=== PATIENT | male | born 1970 | race Caucasian/White ===

== ENCOUNTER 2019-03-22 13:52 | Emergency (ER) | payer MEDICARE, SELFPAY ==
[2019-03-22 14:03] VITALS: BP 145/88; PULSE 107; RESP 16; TEMP 36.5; O2SAT 98
[2019-03-22] MEDS: Dexamethasone 4 MG TAB 10 MG PO (14:45)
--- NOTE | 2019-03-22 14:50 | ED.GENADUL_ITS ---
Discharge Plan Disposition Patient Disposition: HOME Condition: Stable Discharge Details Chief Complaint: FacialProb Clinical Impression: Congestion of paranasal sinus Primary Care Provider: None,None ED Provider: Rg Barba Home Meds and New Rx's Prescriptions: New dexamethasone [dexamethasone] 4 MG tablet 8 mg PO DAILY Qty: 4 RF: 0 No Action atorvastatin 80 mg Tablet 80 mg PO HS RF: 0 metformin 1,000 mg Tablet 1,000 mg PO BID RF: 0 esomeprazole magnesium [Nexium] 20 mg Capsule,Delayed Release(Dr/Ec) PO DAILY RF: 0 fluticasone propionate [Flonase Allergy Relief] 50 mcg/actuation [place],Suspension INTRANASAL RF: 0 Discharge Instructions Additional Instructions: 1. Drink plenty of fluids. 2. Continue all medications as prescribed. 3. Acetaminophen 1000mg every 4 hours (up to 5 time a day) and/or ibuprofen 600mg every 6 hours as needed for fever or pain. 4. Decadron 8 mg once a day for 2 more days starting tomorrow. 5. Use [id number] Flonase as directed. Return to the Emergency Department (ED) if your condition worsens, does not improve as expected, or for ANY other concerns. Specifically, return if you have new or uncontrolled pain, worsening fever, difficulty breathing, vomiting, or are unable to drink fluids. Medical Decision Making 48-year-old gentleman presents with new onset of left paranasal swelling and pain associated with sneezing recently. He has subjective congestion in his left sinuses. Nonfocal exam with normal ocular, nasal, and ear exam. No hypopharyngeal swelling or erythema. Discussed expectant management with anti- inflammatories. Treated in ED with oral Decadron discharge with prescription for the same. Also recommended using [id number] Flonase. He will follow- up here with a primary care provider. Given usual and customary return instructions prior to discharge. HPI 48-year-old gentleman with unremarkable past medical history who recently moved to [place] from [place]. Presents with new onset of left paranasal pain and congestion associated sneezing recently. He notes being mildly congested and then after a sneezing episode having increased pain and subjective swelling in his left paranasal region. His pain has been persistent and refractory to OTC analgesia. He denies significant change in vision, hearing loss, fever/chills, generalized soft tissue swelling of the face. He denies oropharyngeal swelling or difficulty swallowing. General Date/Time Provider Initiated Documentation: 03/22/19 14:38 . Related Data Home Medications Medication Instructions Recorded Confirmed atorvastatin 80 mg PO HS 03/22/19 03/22/19 dexamethasone 8 mg PO DAILY #4 tab 03/22/19 esomeprazole magnesium [Nexium] mg PO DAILY 03/22/19 fluticasone propionate [Flonase INTRANASAL 03/22/19 Allergy Relief] metformin 1,000 mg PO BID 03/22/19 03/22/19 Previous Rx's Medication Instructions Recorded dexamethasone 8 mg PO DAILY #4 tab 03/22/19 Allergies Allergy/AdvReac Type Severity Reaction Status Date / Time mushroom Allergy Unverified 03/22/19 14:07 General Stated Complaint: FacialProb TORSTEN: 4 Review of Systems All systems reviewed & are unremarkable except as noted in HPI and below PFSH Social History Smoking/Tobacco Use Status: Never Alcohol Intake: current Alcohol Intake frequency: a few times a month Substance use type: does not use Do you feel safe at home: Yes Do you feel safe in your relationship?: Yes Exam Narrative Exam Narrative: Nursing note and vital signs have been reviewed and noted. GENERAL: alert, active, no acute distress, well -hydrated, well-nourished HEENT: atraumatic/normocephalic, PERRLA, EOMI, conjunctiva clear, external ears/canals normal, nasal mucosa normal NECK: supple, full range of motion CARDIOVASCULAR: nl pulses, no edema PULMONARY: nl effort, no audible wheezing or stridor ABDOMEN: non-distended EXTREMITY: normal muscle tone, all joints with FROM, no deformity NUERO: normal mentation, moving all extremities, normal stance and gait, PSYCH: alert and oriented SKIN: no new rashes or lesions Course Vital Signs Vital signs: Vital Signs Temperature 97.7 F 03/22/19 14:03 Pulse 107 H 03/22/19 14:03 Respiratory Rate 16 03/22/19 14:03 Blood Pressure 145/88 H 03/22/19 14:03 Pulse Oximetry 98 03/22/19 14:03 Temperature 97.7 F 03/22/19 14:03 Temperature Source Temporal Artery Scan 03/22/19 14:03 Pulse 107 H 03/22/19 14:03 Respiratory Rate 16 03/22/19 14:03 Blood Pressure 145/88 H 03/22/19 14:03 Blood Pressure Position Sitting 03/22/19 14:03 Pulse Oximetry 98 03/22/19 14:03 Oxygen Delivery Method Room Air 03/22/19 14:03 Oxygen Flow Rate 0 03/22/19 14:03 Pain Level 7 03/22/19 14:03
== END 2019-03-22 14:54 | disposition home or self-care (01) ==
LOC: ER 14:43
PROVIDERS: Emergency Provider Emergency Medicine
DX: R09.81 Nasal congestion (principal)
CPT/HCPCS: 99283; J8540

== ENCOUNTER 2019-05-03 12:48 | Emergency (ER) | payer MEDICARE, SELFPAY ==
[2019-05-03 12:52] VITALS: BP 130/85; PULSE 78; RESP 20; TEMP 36.3; O2SAT 98
--- NOTE | 2019-05-03 13:09 | W.ED.GENAD ---
Discharge Plan Disposition Patient Disposition: HOME Condition: Good Discharge Details Chief Complaint: Orthopedic Clinical Impression: Plantar fasciitis, Chronic foot pain Primary Care Provider: Renea Amezquita ED Provider: Gisel Catherine Home Meds and New Rx's Prescriptions: Continued atorvastatin 80 mg Tablet 80 mg PO HS RF: 0 metformin 1,000 mg Tablet 1,000 mg PO BID RF: 0 esomeprazole magnesium [Nexium] 20 mg Capsule,Delayed Release(Dr/Ec) 20 mg PO DAILY RF: 0 fluticasone propionate [Flonase Allergy Relief] 50 mcg/actuation [place],Suspension 2 spray INTRANASAL PRN PRNRF: 0 Discharge Instructions Instructions: Plantar Fasciitis Exercises (GEN), Plantar Fasciitis (ED) Additional Instructions: Encourage water intake. Encourage rest, ice, elevation. Tylenol and/or ibuprofen as needed for discomfort. Please perform rolling exercises as discussed. An ice water bottle may also be of benefit to roll your foot on. Please keep your upcoming appointment with podiatry. Brace to help with discomfort as needed. If you develop new or worsening symptoms please seek care urgently once again. Stand Alone Forms: Physical Therapy Referral Referrals: Renea Amezquita [Primary Care Provider] - Discharge Data Discharge Date/Time-TO BE ENTERED AT DEPARTURE: 05/03/19 13:35 Medical Decision Making Patient is a 49-year-old male, accompanied by his , chief complaint of right foot pain. He reports is acute on chronic pain. States that he is has known bone spurs that are been an issue for several years. He indicates the distal calcaneus as area of this bone spur. Reports he has been seen for this historically. States the pain has been exacerbated over the past 5 days. Denies any trauma. No fall. No sudden onset of pain. Has not been using any [id number] medication or stretching techniques to help with this. Denies any fevers or chills. No recent travel. Denies any altered sensation. Past medical history pertinent for type II by diabetes. On exam, patient appears nontoxic. Vital signs within normal limits. No evidence of trauma to the right lower extremity. He has pain to palpation over the distal calcaneus, particularly the medial aspect. Pain is exacerbated with dorsiflexion. No pain over the Achilles tendon. Negative Chapman test, negative Homans sign. No pain elicited in the ankle with range of motion. 2+ distal pulses and brisk capillary refill. Findings most consistent with plantar fasciitis, likely exacerbated by his underlying bone spur. He has an appointment in 2 weeks with podiatry. He is requesting a brace. Given the location of discomfort, I advised we do not have plantar fasciitis bracing we did offer more of an ankle and heel brace. He feels that if the ankle is more immobilized his pain will decrease. Will give an ankle brace. Encourage rest, ice, elevation. Tylenol and ibuprofen as needed for discomfort. He reports he has been seen for this historically. I did review stretching rolling techniques which his states previous primary care had advised as well. Patient feels immediately better after application of the lace up ankle brace. He was given return precautions. All his questions and concerns were addressed and he is in agreement this plan. HPI General Mode of arrival: ambulatory. Date/Time Provider Initiated Documentation: 05/03/19 13:08. Limitations to Documentation: no limitations. Information obtained by: patient, family () and RN notes reviewed. History of Present Illness 49 year old M presents to the emergency department with the chief complaint of right foot pain, described as moderate, with intensity rated at 7 (at rest, worse with movement). Quality is described as aching, and is localized to the right and lower extremity. Patient reports no radiation. Patient started experiencing this year(s) (reports worse over the past 5 days) and it has been constant. Immobilization improves symptom(s), Movement worsens symptoms . Patient notes no other symptoms.; denies rash. Patient did receive the following treatments prior to arrival, none Related Data Home Medications Medication Instructions Recorded Confirmed atorvastatin 80 mg PO HS 03/22/19 05/03/19 esomeprazole magnesium [Nexium] 20 mg PO DAILY 03/22/19 05/03/19 fluticasone propionate [Flonase 2 spray INTRANASAL PRN PRN 03/22/19 05/03/19 Allergy Relief] metformin 1,000 mg PO BID 03/22/19 05/03/19 Allergies Allergy/AdvReac Type Severity Reaction Status Date / Time mushroom Allergy Unverified 05/03/19 12:59 General Stated Complaint: Orthopedic TORSTEN: 3 Review of Systems Constitutional Constitutional: Reports as per HPI, Denies chills, Denies fever(s), Denies headache(s) and Denies weakness ENT Ears, Nose, Mouth, and Throat: Denies headache(s) Cardiovascular Cardiovascular: Reports as per HPI Respiratory Respiratory: Reports as per HPI and Denies cough Musculoskeletal Musculoskeletal: Reports as per HPI and Denies tingling Integumentary/Breasts Skin/Breast: Reports as per HPI, Denies rash and Denies wounds Neurologic Neurologic: Reports as per HPI, Denies headache(s), Denies tingling, Denies paresthesias and Denies weakness COUNTS INCLUDE 234 BEDS AT THE [facility] Medical History Acid reflux (Chronic) Hypercholesteremia (Acute) Type 2 diabetes mellitus (Acute) Surgical History H/O adenoidectomy (Acute) H/O knee surgery (Acute) H/O repair of rotator cuff (Acute) History of cholecystectomy (Chronic) Hx of tonsillectomy (Chronic) Social History Smoking/Tobacco Use Status: Former Tobacco Use Tobacco: How many years used: 31 Alcohol Intake: current Alcohol Intake frequency: a few times a month Drug use: Never Substance use type: does not use Do you feel safe at home: Yes Do you feel safe in your relationship?: Yes Exam Const General: cooperative, healthy appearing, comfortable, no acute distress, well developed and well groomed Nutritional Appearance: well nourished and overweight Orientation: alert and awake Resp Effort & Inspection: normal respiratory effort, able to speak in complete sentences and no respiratory distress Cardio Rate: regular rate Rhythm: regular rhythm Skin General skin exam: no rashes or lesions noted Lesions: no lesions Rashes: no rashes Trauma: no lacerations or abrasions Neuro General: alert and awake Cognition: normal cognition Speech: speech normal Gait: normal gait Motor: muscle tone normal throughout Sensory Exam: no sensory deficits noted Extrem Right lower extremity: normal to inspection, full ROM, normal capillary refill, no joint enlargement, knee Details: normal to inspection, lower leg Details: normal to inspection and no edema; no erythema, no tenderness, no localized swelling, no palpable cords, no ecchymosis, no crepitus, no deformity and no unusual warmth, ankle Details: normal to inspection, no edema and normal ROM; no tenderness, no swelling, no unusual warmth, no abrasions, no lacerations, no ecchymosis, no crepitus and achilles tendon exam normal and foot Details: normal capillary refill, tenderness Location: of the plantar foot Location: proximally and of the calcaneus Details: point tenderness and with squeeze; not of the lateral foot, not of the medial foot, not of the mid foot and not of the base of the 5th metatarsal, toes with normal ROM, no edema, vascular exam Details: dorsalis pedis pulse present and normal capillary refill and motor-sensory exam Details: light-touch normal; no unusual warmth, no laceration, no ecchymosis, no crepitus and no puncture wound; no cyanosis and no edema Psych Appearance: grossly normal and well kempt Mental Status: mental status grossly normal Speech and Movement: speech and movement normal Course Vital Signs Vital signs: Vital Signs Temperature 36.3 C L 05/03/19 12:52 Pulse 78 05/03/19 12:52 Respiratory Rate 20 05/03/19 12:52 Blood Pressure 130/85 05/03/19 12:52 Pulse Oximetry 98 05/03/19 12:52 Temperature 36.3 C L 05/03/19 12:52 Temperature Source Skin 05/03/19 12:52 Pulse 78 05/03/19 12:52 Respiratory Rate 20 05/03/19 12:52 Respiratory Effort Non-Labored 05/03/19 13:02 Blood Pressure 130/85 05/03/19 12:52 Blood Pressure Position Sitting 05/03/19 12:52 Pulse Oximetry 98 05/03/19 12:52 Oxygen Delivery Method Room Air 05/03/19 12:52 Oxygen Flow Rate 0 05/03/19 12:52 Pain Level 9 05/03/19 12:52 Comment 05/03/19 12:52
== END 2019-05-03 13:35 | disposition home or self-care (01) ==
PROVIDERS: Emergency Provider Physician Assistant; PCP Nurse Practitioner
DX: M72.2 Plantar fascial fibromatosis (principal); M25.571 Pain in right ankle and joints of right foot; G89.29 Other chronic pain; M77.31 Calcaneal spur, right foot; E11.9 Type 2 diabetes mellitus without complications; Z79.84 Long term (current) use of oral hypoglycemic drugs
CPT/HCPCS: 29515; 99283; L1902

== ENCOUNTER 2022-01-21 07:10 | Outpatient (REF) | payer OTHER, SELFPAY ==
[2022-01-22 13:24] LABS: COVID-19 RT-PCR UVMMC Result Negative (Negative)
== END 2022-01-21 07:11 | disposition home or self-care (01) ==
LOC: LBN 07:10
PROVIDERS: PCP Nurse Practitioner; Visit Provider Physician Assistant Medical
DX: R05.8 Other specified cough (principal); Z20.822 Contact with and (suspected) exposure to COVID-19
CPT/HCPCS: U0003

== ENCOUNTER 2022-09-13 12:04 | Emergency (ER) | payer OTHER, MEDICAID, SELFPAY ==
[2022-09-13 12:11] VITALS: BP 122/79; PULSE 89; RESP 16; TEMP 36.3; O2SAT 97
--- NOTE | 2022-09-13 13:00 | DI.RAD_ITS ---
Exam(s) XR WRIST RT COMPLETE EXAM: XR WRIST RT COMPLETE CLINICAL HISTORY: Wrist pain. TECHNIQUE: 2D digital imaging was performed of the right wrist. Three views were obtained. PA, lat eral and oblique views were obtained. COMPARISON: No exams were available for comparison FINDINGS: BONES: No acute fracture is present. No bony destructive lesion is seen. JOINTS: The carpal bones are normally aligned. SOFT TISSUE: Normal. IMPRESSION: Unremarkable radiographs of the right wrist. DATA REPOSITORY: RADIATION DOSE DELIVERED:
[2022-09-13 15:57] VITALS: BP 132/79; PULSE 95; TEMP 36.6; O2SAT 95
--- NOTE | 2022-09-13 15:58 | W.ED.GENAD ---
Discharge Plan Disposition Patient Disposition: Home Discharge Details Clinical Impression: Epicondylitis, lateral (tennis elbow) Primary Care Provider: Renea Amezquita ED Provider: Kirit Beasley Home Meds and New Rx's Prescriptions: New ibuprofen [IBU] 600 mg tablet 600 mg PO QID PRN (Reason: pain) Qty: 10 0RF Continued omeprazole 20 mg capsule,delayed release(DR/EC) 20 mg PO DAILY glipizide 10 mg tablet 10 mg PO DAILY albuterol sulfate [ProAir HFA] 90 mcg/actuation HFA aerosol inhaler 2 puff inhalation Q6H PRN lisinopril 5 mg tablet 5 mg PO DAILY atorvastatin 80 mg tablet 40 mg PO HS metformin 1,000 mg Tablet 1,000 mg PO BID fluticasone propionate [Flonase Allergy Relief] 50 mcg/actuation [place],Suspension 2 spray INTRANASAL PRN PRN Held diclofenac sodium 75 mg tablet,delayed release (DR/EC) 75 mg PO ONCE PRN Hold Instructions: While on ibuprofen Discharge Instructions Instructions: Tennis Elbow (ED) Additional Instructions: Please use the provided Ravi wrap to help with discomfort and as a reminder to reduce prolonged bending of your elbow or repetitive motion. Please take ibuprofen as needed for discomfort and follow-up with your primary care provider preferably next week for reassessment and to ensure that you are healing well. Referrals: Renea Amezquita [Primary Care Provider] - 1 week Discharge Data Discharge Date/Time-TO BE ENTERED AT DEPARTURE: 09/13/22 16:33 Medical Decision Making Patient presenting to the emergency department for chief complaint of right arm pain. Patient states he was seen at urgent care couple weeks ago but still continuing of pain discomfort. Patient denies any injury or trauma. Radiological imaging was performed prior to my assessment of the patient due to long triage times and imaging along with radiologist interpretation was reviewed and shows no acute findings. Patient was assessed and shows significant lateral epicondyles tenderness with exacerbation of symptoms. Exam is otherwise unremarkable. Patient does state radial nerve pattern discomfort with flareups. Patient states no relief with his diclofenac so we will try ibuprofen on scheduled basis and place patient in an Ravi wrap of elbow compared to the resplint he had. Will refer patient to follow-up with primary care provider for recheck if not improving. After discussion of diagnosis and plan of care patient has no further needs, questions, or concerns and states clear understanding to return to the emergency department for any worsening symptoms. This documentation was generated using Kluster dictation system, please disregard any oddities of phrase or misspellings. Imaging Data Radiologic Study: Imaging: X-Ray Radiologist's impression: Exam(s) XR WRIST RT COMPLETE EXAM: XR WRIST RT COMPLETE CLINICAL HISTORY: Wrist pain. TECHNIQUE: 2D digital imaging was performed of the right wrist. Three views were obtained. PA, lateral and oblique views were obtained. COMPARISON: No exams were available for comparison FINDINGS: BONES: No acute fracture is present. No bony destructive lesion is seen. JOINTS: The carpal bones are normally aligned. SOFT TISSUE: Normal. IMPRESSION: Unremarkable radiographs of the right wrist. HPI General Mode of arrival: ambulatory. Date/Time Provider Initiated Documentation: 09/13/22 12:28. Limitations to Documentation: no limitations. Information obtained by: patient and RN notes reviewed. History of Present Illness 52 year old M presents to the emergency department with the chief complaint of Right arm pain, described as moderate, with intensity rated at 6. Quality is described as aching and sharp, and is localized to the right and upper extremity. Patient reports no radiation. Patient started experiencing this week(s) (2-3) and it has been constant. No relieving factors improve symptom(s), Movement worsens symptoms . Patient notes no other symptoms.. Patient did receive the following treatments prior to arrival, splint Related Data Home Medications Medication Instructions Recorded Confirmed fluticasone propionate 50 2 spray intranasal PRN PRN 03/22/19 09/13/22 mcg/actuation nasal spray,suspension (Flonase Allergy Relief) metformin 1,000 mg tablet 1,000 mg PO BID 03/22/19 09/13/22 albuterol sulfate 90 mcg/actuation 2 puff inhalation Q6H PRN 12/18/21 09/13/22 aerosol inhaler (ProAir HFA) atorvastatin 80 mg tablet 40 mg PO HS 12/18/21 09/13/22 diclofenac sodium 75 mg 75 mg PO ONCE PRN 12/18/21 09/13/22 tablet,delayed release glipizide 10 mg tablet 10 mg PO DAILY 12/18/21 09/13/22 lisinopril 5 mg tablet 5 mg PO DAILY 12/18/21 09/13/22 omeprazole 20 mg capsule,delayed 20 mg PO DAILY 12/18/21 09/13/22 release ibuprofen 600 mg tablet (IBU) 600 mg PO QID PRN pain #10 tabs 09/13/22 Previous Rx's Medication Instructions Recorded ibuprofen 600 mg tablet (IBU) 600 mg PO QID PRN pain #10 tabs 09/13/22 Allergies Allergy/AdvReac Type Severity Reaction Status Date / Time mushroom Allergy Unverified 09/13/22 12:14 General Stated Complaint: Orthopedic TORSTEN: 4 Review of Systems Constitutional Constitutional: Denies chills, Denies fever(s) and Denies headache(s) ENT Ears, Nose, Mouth, and Throat: Denies headache(s) Cardiovascular Cardiovascular: Denies chest pain Musculoskeletal Musculoskeletal: Reports as per HPI, Reports arthralgias, Denies joint swelling, Denies limited range of motion, Reports numbness, Reports radiating pain into limb and Reports tingling Integumentary/Breasts Skin/Breast: Denies erythema and Denies wounds Neurologic Neurologic: Denies headache(s), Reports numbness and Reports tingling PFSH All Active Problems (Updated 09/13/22 @ 16:21 by Kirit Beasley NP) Epicondylitis, lateral (tennis elbow) (Acute) LILIYA (obstructive sleep apnea) (Chronic) Hypertension (Chronic) Screening for colon cancer (Acute) Medical History (Updated 09/13/22 @ 16:21 by Kirit Beasley NP) Achilles tendonitis Acid reflux Arthralgia of right foot Asthma Hypercholesteremia Ingrown toenail of left foot Lower limb length difference Onychodystrophy Plantar fasciitis Posterior tibial tendonitis Right knee pain Sensorineural hearing loss of both ears Type 2 diabetes mellitus Surgical History H/O adenoidectomy H/O knee surgery H/O repair of rotator cuff History of cholecystectomy Hx of tonsillectomy Social History Smoking/Tobacco Use Status: Former Tobacco Use Tobacco: How many years used: 31 Smoking risk assessment performed?: Yes Alcohol Intake: current Alcohol Intake frequency: a few times a month Drug use: Never Substance use type: does not use Do you feel safe at home: Yes Do you feel safe in your relationship?: Yes Exam Const General: cooperative, no acute distress and not ill appearing Orientation: alert, awake and oriented x3 HENMT Mouth: moist mucous membranes Resp Effort & Inspection: normal respiratory effort, able to speak in complete sentences and no respiratory distress Cardio Rate: regular rate Rhythm: regular rhythm Pulses: radial pulses present Skin General skin exam: no rashes or lesions noted Neuro General: patient alert, patient awake, patient oriented x3, moves all extremities and no focal motor deficits Sensory Exam: no sensory deficits noted Extrem Right upper extremity: no joint enlargement, elbow/forearm Details: tenderness Location: of the lateral epicondyle Details: with resisted supination and normal ROM, wrist Details: normal to inspection and normal ROM; no tenderness and hand Details: normal to inspection, normal capillary refill, neuromotor exam normal, neurosensory exam normal, tendon exam normal, vascular exam Details: radial pulse present and normal capillary refill and normal ROM of fingers; no tenderness; no edema Course Vital Signs Vital signs: Vital Signs Temperature 36.3 C L 09/13/22 12:11 Pulse 89 09/13/22 12:11 Respiratory Rate 16 09/13/22 12:11 Blood Pressure 122/79 09/13/22 12:11 Pulse Oximetry 97 09/13/22 12:11 Temperature 36.6 C 09/13/22 15:57 Temperature Source Temporal Artery Scan 09/13/22 15:57 Pulse 95 H 09/13/22 15:57 Respiratory Rate 16 09/13/22 12:11 Respiratory Effort Normal 09/13/22 12:26 Blood Pressure 132/79 09/13/22 15:57 Blood Pressure Position Sitting 09/13/22 12:11 Pulse Oximetry 95 09/13/22 15:57 Oxygen Delivery Method Room Air 09/13/22 15:57 Oxygen Flow Rate 0 09/13/22 15:57 Pain Level 7 09/13/22 15:57
--- NOTE | 2022-09-13 16:31 | NUR.NOTE ---
Referral given to Care Management to PCP for recheck tennis elbow/ in 1 to 2 weeks. Nursing Note:
[2022-09-13] MEDS: Ibuprofen 600 MG TAB, 6 TABS/BTL PO (16:33)
== END 2022-09-13 16:33 | disposition home or self-care (01) ==
PROVIDERS: Emergency Provider Nurse Practitioner Family; PCP Nurse Practitioner
DX: M77.11 Lateral epicondylitis, right elbow (principal)
CPT/HCPCS: 99283; 73110

== ENCOUNTER 2023-10-23 16:24 | Outpatient (CLI) | payer MEDICARE, SELFPAY ==
[2023-10-23 09:44] LABS: Abs Immature Grans 0.01 10^3/uL (0.0-0.06); Absolute Basophil Count 0.03 10^3/uL (0.0-0.2); Absolute Lymphocyte Count 1.79 10^3/uL (1.2-3.4); Absolute Monocyte Count 0.92 10^3/uL (0.1-0.8); Absolute Neutrophil Count 4.22 10^3/uL (1.2-6.7); Basophils % 0.4 %; Eosinophils % 1.4 %; HCT 47.4 % (40.0-50.0); HGB 16.5 g/dL (13.5-17.5); Immature Grans % 0.1 %; Lymphocytes % 25.3 %; MCH 30.6 pg (27.0-33.0); MCHC 34.8 % (32.0-36.0); MCV 88 fL (80-95); MPV 12.4 fL (8.0-11.0); Neutrophils % 59.8 %; Platelet Count 194 10^3/uL (130-400); RBC 5.39 10^6/uL (4.36-5.78); RDW 11.6 % (11.8-14.1); RDW-SD 36.9 fL; WBC 7.07 10^3/uL (4.4-10.8)
[2023-10-23 09:53] LABS: Hemoglobin A1C 7.8 % (<5.7)
[2023-10-23 09:59] LABS: ALT 78 U/L (16-63); AST 24 U/L (15-37); Albumin 4.2 g/dL (3.4-5.0); Alkaline Phosphatase 115 U/L (46-116); Anion Gap 7.9 mmol/L (3-11); BUN 23 mg/dL (7-18); Bilirubin, Total 0.4 mg/dL (0.2-1.0); C-Reactive Protein < 0.50 mg/dL (<or=0.5); CO2 28.1 mmol/L (21.0-32.0); CREATININE 1.1 mg/dL (0.70-1.30); Calcium 9.1 mg/dL (8.5-10.1); Calculated LDL 69 mg/dL (<100); Chloride 102 mmol/L (98-107); Cholesterol 131 mg/dL (<200); Estimated GFR 79.77 (mL/min/1.73m2); Glucose 199 mg/dL (74-106); HDL Cholesterol 37 mg/dL (40-60); Magnesium 1.6 mg/dL (1.8-2.4); Potassium 4.3 mmol/L (3.5-5.1); Sodium 138 mmol/L (136-145); Total Protein 7.7 g/dL (6.4-8.2); Triglyceride 129 mg/dL (<150)
== END 2023-10-23 16:25 | disposition home or self-care (01) ==
LOC: LBO 16:25
PROVIDERS: PCP Nurse Practitioner; Visit Provider Nurse Practitioner
DX: I10 Essential (primary) hypertension (principal); E11.9 Type 2 diabetes mellitus without complications
CPT/HCPCS: 36415; 80053; 80061; 83036; 83735; 85025; 86140

== ENCOUNTER 2023-12-20 10:41 | Emergency (ER) | payer MEDICARE, SELFPAY ==
[2023-12-20 10:48] VITALS: BP 120/78; PULSE 105; RESP 18; TEMP 35.6; O2SAT 98
--- NOTE | 2023-12-20 11:00 | DI.RAD_ITS ---
Exam(s) XR CHEST 2V PA LATERAL EXAM: XR CHEST 2V PA LATERAL CLINICAL HISTORY: Cough, eval PNA. TECHNIQUE: 2D digital imaging was performed. COMPARISON: No exams were available for comparison FINDINGS: 2 views: Heart size is normal. The mediastinum is not widened. Lungs are clear. No infiltrates nor pleural effusions. IMPRESSION: No acute pulmonary findings. DATA REPOSITORY: RADIATION DOSE DELIVERED:
--- NOTE | 2023-12-20 11:00 | RT.EKG_ITS ---
APPROVED REPORT Exam: Resting ECG Reason for Exam: Cough, tachy Patient Location: E HR:85 bpm ECG Measurements Heart Rate 85 AXIS NH 149 P 18 QRSd 83 QRS -1 QT 342 T 28 QTc 408 Conclusion Sinus rhythm Normal axis No STEMI
--- NOTE | 2023-12-20 11:13 | ED.GENADUL_ITS ---
Discharge Plan Disposition Patient Disposition: Home Condition: Stable Discharge Details Clinical Impression: Cough, Vomiting and diarrhea, Elevated lactic acid level Primary Care Provider: Renea Amezquita ED Provider: Le Burnett Home Meds and New Rx's Prescriptions: No Action omeprazole 20 mg capsule,delayed release(DR/EC) 20 mg PO DAILY glipizide 10 mg tablet 10 mg PO DAILY albuterol sulfate [ProAir HFA] 90 mcg/actuation HFA aerosol inhaler 2 puff inhalation Q6H PRN diclofenac sodium 75 mg tablet,delayed release (DR/EC) 75 mg PO ONCE PRN lisinopril 5 mg tablet 5 mg PO DAILY atorvastatin 80 mg tablet 40 mg PO HS metformin 1,000 mg Tablet 1,000 mg PO BID fluticasone propionate [Flonase Allergy Relief] 50 mcg/actuation [place] pension 2 spray INTRANASAL PRN PRN ibuprofen [IBU] 600 mg tablet 600 mg PO QID PRN (Reason: pain) Qty: 10 0RF Ozempic 2 mg/dose (8 mg/3 mL) pen injector 2 mg SUBCUT QWEEK gabapentin 300 mg capsule 300 mg PO BID Discharge Instructions Instructions: Cough, Adult ED, Diarrhea, Adult ED Additional Instructions: You were seen in the emergency department today for evaluation of cough with vomiting and diarrhea. In our department you have a full physical examination performed, had a reassuring x-ray with no sign of pneumonia, and had laboratory studies that showed a small elevation in your lactic acid which can sometimes be seen when you do are slightly dehydrated. We provided you with fluids through an IV in this level improved, but you should continue to maintain good hydration and nutrition and follow-up with your primary care provider in the next few days you can also return to the emergency department if your symptoms worsen or you have any additional concerns. Thank you for allowing us to be part of your care. HPI General Date/Time Provider Initiated Documentation: 12/20/23 10:54 . HPI Narrative: MDM: In brief, this is a 53-year-old male patient with history of LILIYA, hypertension, hyperlipidemia, and diabetes who is presenting for evaluation of 1 and half weeks of cough associated with nausea and vomiting and diarrhea. My differential includes but is not limited to respiratory pathology including viral URI, pneumonia, there is no wheezing to suggest reactive airway disease exacerbation, and no focal lung findings to increase my concern for pulmonary edema or pleural effusion. The patient is not hypoxic and does not have increased work of breathing, nor DVT symptoms or history of thromboembolic disease to significantly increase my concern for clinically significant pulmonary embolism. No chest pain at this time to suggest ACS. The patient has a benign abdominal examination, but I certainly considered etiologies such as diverticulitis, appendicitis, pancreatitis, esophagitis/PUD. I considered metabolic electrolyte derangements, dehydration, kidney injury. I am reassured by the patient's hemodynamic stability, his initial tachycardia noted in triage resolved spontaneously. Will obtain viral swab, chest x-ray, and laboratory studies to include CBC, CMP, lipase, and lactate. At this time I do not see an indication to proceed with abdominal imaging, but will certainly reassess. ED Course: I obtained and reviewed an EKG, which shows a normal sinus rhythm with no evidence of ischemia, ST segment changes or ectopy. I independently interpreted the two-view chest x-ray obtained which shows no pulmonary opacities or other abnormalities to account for the patient's symptoms. I did review the patient's laboratory studies, most notable for a mild lactate elevation to 2.3. I did provide the patient with a liter of IV fluids, after which the lactate was rechecked and noted to be 1.8. The patient admits to drinking very little water and was encouraged to increase his hydration. Laboratory studies were reviewed, showing no leukocytosis, anemia or thrombocytopenia. The chemistry panel reveals no electrolyte abnormalities or kidney dysfunction. The patient has a very mild transaminitis, but no other evidence of liver dysfunction, lipase is low. COVID, influenza, and RSV testing were negative. At this time, the patient has had a full medical evaluation and is safe for discharge to home. They are hemodynamically stable, ambulatory, and tolerating PO. They are understanding of the follow-up plan and return precautions. They left our facility without incident. Le Burnett MD HPI: This is a 53-year-old male patient with a history of LILIYA, hypertension, hyperlipidemia, presenting for evaluation of 1-1/2 weeks of cough with vomiting and diarrhea. The patient reports that the symptoms have been mild, but he was prompted to seek care because his family had in the past experienced episodes of pneumonia and he wanted to make sure that he was not developing this condition. He reports that he has not had fever, runny or stuffy nose, sometimes brings up scant sputum with his cough but has not had hemoptysis. He reports that he is not experiencing chest pain or shortness of breath. He has had mild generalized abdominal discomfort during vomiting, and has had daily nonbloody diarrhea, typically 1 episode per day. No dysuria, flank pain, and he has been able to eat and drink normally. Nobody else in the patient's home is sick, he does not have a history of reactive airway disease, does not utilize nicotine, and does not wear home oxygen Exam: Gen: Awake and alert, in no apparent distress HEENT: Non-icteric sclera Neck: Supple Lungs: No apparent respiratory distress, normal respiratory effort. Lung sounds clear and equal bilaterally without wheezes, rhonchi, rales CV: Appears well perfused strong distal pulses symmetrical bilaterally Abdomen: Non-distended, soft, nontender to palpation with no rigidity, rebound, or guarding MSK: Moves 4 extremities without apparent limitation in ROM. No unilateral calf tenderness or swelling Skin: Visualized skin without rashes, cyanosis. Neuro: Normal Gait, no obvious focal deficits or facial asymmetry. Speaks in full, clear sentences. Psych: Appropriate for situation. Related Data Home Medications ?Medication ?Instructions ?Recorded ?Confirmed fluticasone propionate 50 2 spray intranasal PRN PRN 03/22/19 12/20/23 mcg/actuation nasal spray,suspension (Flonase Allergy Relief) metformin 1,000 mg tablet 1,000 mg PO BID 03/22/19 12/20/23 albuterol sulfate 90 mcg/actuation 2 puff inhalation Q6H PRN 12/18/21 12/20/23 aerosol inhaler (ProAir HFA) atorvastatin 80 mg tablet 40 mg PO HS 12/18/21 12/20/23 diclofenac sodium 75 mg 75 mg PO ONCE PRN 12/18/21 12/20/23 tablet,delayed release glipizide 10 mg tablet 10 mg PO DAILY 12/18/21 12/20/23 lisinopril 5 mg tablet 5 mg PO DAILY 12/18/21 12/20/23 omeprazole 20 mg capsule,delayed 20 mg PO DAILY 12/18/21 12/20/23 release ibuprofen 600 mg tablet (IBU) 600 mg PO QID PRN pain #10 tabs 09/13/22 12/20/23 gabapentin 300 mg capsule 300 mg PO BID 12/20/23 12/20/23 semaglutide 2 mg/dose (8 mg/3 mL) 2 mg subcut QWEEK 12/20/23 12/20/23 subcutaneous pen injector (Ozempic) Previous Rx's ?Medication ?Instructions ?Recorded ibuprofen 600 mg tablet (IBU) 600 mg PO QID PRN pain #10 tabs 09/13/22 Allergies Allergy/AdvReac Type Severity Reaction Status Date / Time mushroom Allergy Severe Anaphylaxis Unverified 12/20/23 10:51 aspirin AdvReac Mild Other (See Verified 12/20/23 10:52 Comment) General Stated Complaint: GenMedical TORSTEN: 3 Course Vital Signs Vital signs: Vital Signs Temperature 35.6 C L 12/20/23 10:48 Pulse 105 H 12/20/23 10:48 Respiratory Rate 18 12/20/23 10:48 Blood Pressure 120/78 12/20/23 10:48 Pulse Oximetry 98 12/20/23 10:48 Temperature 35.6 C L 12/20/23 10:48 Temperature Source Temporal Artery Scan 12/20/23 10:48 Pulse 105 H 12/20/23 10:48 Respiratory Rate 18 12/20/23 10:48 Respiratory Effort Normal, Non-Labored 12/20/23 10:54 Blood Pressure 120/78 12/20/23 10:48 Blood Pressure Position Sitting 12/20/23 10:48 Pulse Oximetry 98 12/20/23 10:48 Oxygen Delivery Method Room Air 12/20/23 10:48 Oxygen Flow Rate 0 12/20/23 10:48 Medical Decision Making Quality:SDOH Health Related Social Needs: No Data to Display PFSH All Active Problems (Updated 12/20/23 @ 13:17 by Le Burnett MD) Elevated lactic acid level (Acute) Vomiting and diarrhea (Acute) Cough (Acute) LILIYA (obstructive sleep apnea) (Chronic) Hypertension (Chronic) Screening for colon cancer (Acute) Medical History (Updated 12/20/23 @ 13:17 by Le Burnett MD) Plantar fasciitis Achilles tendonitis Lower limb length difference Ingrown toenail of left foot Onychodystrophy Arthralgia of right foot Posterior tibial tendonitis Asthma Right knee pain Sensorineural hearing loss of both ears Acid reflux Type 2 diabetes mellitus Hypercholesteremia Surgical History H/O adenoidectomy Hx of tonsillectomy H/O repair of rotator cuff H/O knee surgery History of cholecystectomy Social History Smoking/Tobacco Use Status: Former Tobacco Use Tobacco: How many years used: 31 Smoking risk assessment performed?: Yes Alcohol Intake: current Alcohol Intake frequency: holidays/special occasions only Drug use: Never Substance use type: does not use Do you feel safe at home: Yes Do you feel safe in your relationship?: Yes
[2023-12-20 11:43] LABS: Lactate 2.3 mmol/L (0.6-1.4)
[2023-12-20 12:02] LABS: Abs Immature Grans 0.02 10^3/uL (0.0-0.06); Absolute Basophil Count 0.03 10^3/uL (0.0-0.2); Absolute Eosinophil Count 0.14 10^3/uL (0.0-0.7); Absolute Lymphocyte Count 1.51 10^3/uL (1.2-3.4); Absolute Monocyte Count 0.62 10^3/uL (0.1-0.8); Absolute Neutrophil Count 3.49 10^3/uL (1.2-6.7); Basophils % 0.5 %; Eosinophils % 2.4 %; HCT 43.3 % (40.0-50.0); HGB 14.8 g/dL (13.5-17.5); Immature Grans % 0.3 %; MCH 30.7 pg (27.0-33.0); MCHC 34.2 % (32.0-36.0); MCV 90 fL (80-95); MPV 11.9 fL (8.0-11.0); Monocytes % 10.7 %; Neutrophils % 60.1 %; Platelet Count 187 10^3/uL (130-400); RBC 4.82 10^6/uL (4.36-5.78); RDW 11.9 % (11.8-14.1); RDW-SD 38.4 fL; WBC 5.81 10^3/uL (4.4-10.8)
[2023-12-20 12:03] LABS: ALT 77 U/L (16-63); AST 53 U/L (15-37); Alkaline Phosphatase 101 U/L (46-116); Anion Gap 7.5 mmol/L (3-11); BUN 13 mg/dL (7-18); Bilirubin, Total 0.53 mg/dL (0.2-1.0); CO2 26.5 mmol/L (21.0-32.0); Calcium 9.1 mg/dL (8.5-10.1); Chloride 105 mmol/L (98-107); Estimated GFR 89.44 (mL/min/1.73m2); Glucose 102 mg/dL (74-106); Lipase 53 U/L (16-77); Potassium 4.8 mmol/L (3.5-5.1); Sodium 139 mmol/L (136-145); Total Protein 7.5 g/dL (6.4-8.2)
[2023-12-20] MEDS: Lactated Ringers 500 ML 1000 ML IV (12:10)
[2023-12-20 12:50] VITALS: BP 116/71; PULSE 78; RESP 20; O2SAT 99
[2023-12-20 12:57] LABS: COVID-19 PCR Negative (Negative); Influenza A PCR Negative (Negative); Influenza B PCR Negative (Negative); RSV PCR Negative (Negative)
[2023-12-20 13:00] LABS: Source Nasopharynx
[2023-12-20 13:11] LABS: Lactate 1.8 mmol/L (0.6-1.4)
[2023-12-20 13:28] VITALS: BP 117/75; PULSE 82; RESP 20; O2SAT 98
== END 2023-12-20 13:29 | disposition home or self-care (01) ==
PROVIDERS: Emergency Provider Emergency Medicine; PCP Nurse Practitioner
DX: R05.9 Cough, unspecified (principal); R11.10 Vomiting, unspecified; R19.7 Diarrhea, unspecified; R74.02 Elevation of levels of lactic acid dehydrogenase [LDH]; E11.9 Type 2 diabetes mellitus without complications; E78.00 Pure hypercholesterolemia, unspecified; I10 Essential (primary) hypertension; E78.5 Hyperlipidemia, unspecified; Z79.84 Long term (current) use of oral hypoglycemic drugs; Z79.85 Long-term (current) use of injectable non-insulin antidiabetic drugs; Z87.891 Personal history of nicotine dependence
CPT/HCPCS: 80053; 83690; 87637; 93005; 99285; 71046; 83605; 85025; 93010; 99284

== ENCOUNTER 2024-03-09 10:36 | Emergency (ER) | payer MEDICARE, SELFPAY ==
[2024-03-09 10:41] VITALS: BP 104/72; PULSE 90; RESP 14; TEMP 37; O2SAT 97
--- NOTE | 2024-03-09 10:45 | DI.RAD_ITS ---
Exam(s) XR KNEE RT 3V AP,LAT,VARUN EXAM: XR KNEE RT 3V AP,LAT,VARUN CLINICAL HISTORY: KNEE PAIN. TECHNIQUE: 2D digital imaging was performed. Three views. COMPARISON: No exams were available for comparison FINDINGS: BONES: No acute fracture is present. No bony destructive lesion is seen. JOINTS: The knee is normally aligned. No joint effusion is seen. Joint spaces are maintained. Mini mal degenerative changes. SOFT TISSUE: Normal. IMPRESSION: Unremarkable radiographs of the right knee. DATA REPOSITORY: RADIATION DOSE DELIVERED:
--- NOTE | 2024-03-09 12:48 | ED.GENADUL_ITS ---
Discharge Plan Disposition Patient Disposition: Home Condition: Stable Discharge Details Clinical Impression: Right knee injury, Acute medial meniscal injury of right knee Primary Care Provider: Renea Amezquita ED Provider: Long Simon Home Meds and New Rx's Prescriptions: Continued omeprazole 20 mg capsule,delayed release(DR/EC) 20 mg PO DAILY glipizide 10 mg tablet 10 mg PO DAILY albuterol sulfate [ProAir HFA] 90 mcg/actuation HFA aerosol inhaler 2 puff inhalation Q6H PRN diclofenac sodium 75 mg tablet,delayed release (DR/EC) 75 mg PO ONCE PRN lisinopril 5 mg tablet 5 mg PO DAILY atorvastatin 80 mg tablet 40 mg PO HS metformin 1,000 mg Tablet 1,000 mg PO BID fluticasone propionate [Flonase Allergy Relief] 50 mcg/actuation [place] 2 spray INTRANASAL PRN PRN ibuprofen [IBU] 600 mg tablet 600 mg PO QID PRN (Reason: pain) Qty: 10 0RF Ozempic 2 mg/dose (8 mg/3 mL) pen injector 2 mg SUBCUT QWEEK gabapentin 300 mg capsule 300 mg PO BID Discharge Instructions Instructions: Knee Immobilizer (DC), Meniscus Tear ED Additional Instructions: X-rays of your right knee were nondiagnostic. I am concerned that you may have a meniscal injury of your right medial knee. Please be sure to follow-up with orthopedics. Use knee immobilizer and crutches until you are able to follow-up. You may remove the knee immobilizer at night while sleeping. Please take acetaminophen (tylenol) - 650mg every 6 hours by mouth as needed for pain. Return to the emergency department immediately for any worsening or new concerning symptoms. Referrals: [facility] [Provider Group] Renea Amezquita [Primary Care Provider] - Discharge Data Discharge Date/Time-TO BE ENTERED AT DEPARTURE: 03/09/24 13:09 HPI General Mode of arrival: ambulatory . Date/Time Provider Initiated Documentation: 03/09/24 10:50 . Limitations to Documentation: no limitations . Information obtained by: patient . HPI Narrative: 53yo male presents with chief complaint of right knee pain. Patient notes he twisted his right knee on Saturday. Pain has persisted. Pain localized to medial knee. No other injury. No associated numbness or tingling. Related Data Home Medications ?Medication ?Instructions ?Recorded ?Confirmed fluticasone propionate 50 2 spray intranasal PRN PRN 03/22/19 03/09/24 mcg/actuation nasal spray,suspension (Flonase Allergy Relief) metformin 1,000 mg tablet 1,000 mg PO BID 03/22/19 03/09/24 albuterol sulfate 90 mcg/actuation 2 puff inhalation Q6H PRN 12/18/21 03/09/24 aerosol inhaler (ProAir HFA) atorvastatin 80 mg tablet 40 mg PO HS 12/18/21 03/09/24 diclofenac sodium 75 mg 75 mg PO ONCE PRN 12/18/21 03/09/24 tablet,delayed release glipizide 10 mg tablet 10 mg PO DAILY 12/18/21 03/09/24 lisinopril 5 mg tablet 5 mg PO DAILY 12/18/21 03/09/24 omeprazole 20 mg capsule,delayed 20 mg PO DAILY 12/18/21 03/09/24 release ibuprofen 600 mg tablet (IBU) 600 mg PO QID PRN pain #10 tabs 09/13/22 03/09/24 gabapentin 300 mg capsule 300 mg PO BID 12/20/23 03/09/24 semaglutide 2 mg/dose (8 mg/3 mL) 2 mg subcut QWEEK 12/20/23 03/09/24 subcutaneous pen injector (Ozempic) Previous Rx's ?Medication ?Instructions ?Recorded ibuprofen 600 mg tablet (IBU) 600 mg PO QID PRN pain #10 tabs 09/13/22 Allergies Allergy/AdvReac Type Severity Reaction Status Date / Time mushroom Allergy Severe Anaphylaxis Unverified 03/09/24 10:43 aspirin AdvReac Mild Other (See Verified 03/09/24 10:43 Comment) General Stated Complaint: Orthopedic TORSTEN: 4 Review of Systems Musculoskeletal Musculoskeletal: Reports as per HPI Exam Extrem Right lower extremity: knee Details: tenderness Location: of the medial joint line, abnormal ROM Details: pain with active ROM during Details: in flexion and other (No knee effusion); no swelling, no ecchymosis, no deformity and no unusual warmth and foot Details: vascular exam Details: dorsalis pedis pulse present Course Vital Signs Vital signs: Vital Signs Temperature 37.0 C 03/09/24 10:41 Pulse 90 03/09/24 10:41 Respiratory Rate 14 03/09/24 10:41 Blood Pressure 104/72 03/09/24 10:41 Pulse Oximetry 97 03/09/24 10:41 Temperature 37.0 C 03/09/24 10:41 Temperature Source Skin 03/09/24 10:41 Pulse 90 03/09/24 10:41 Respiratory Rate 14 03/09/24 10:41 Blood Pressure 104/72 03/09/24 10:41 Blood Pressure Position Sitting 03/09/24 10:41 Pulse Oximetry 97 03/09/24 10:41 Oxygen Delivery Method Room Air 03/09/24 10:41 Oxygen Flow Rate 0 03/09/24 10:41 Pain Level 5 03/09/24 10:41 Medical Decision Making 53-year-old male here with right knee injury 5 to 6 days ago. Patient has tenderness medial knee. Tendon function intact. X-ray of the knee was reviewed interpreted by radiology: Unremarkable radiographs of the right knee. Concern for medial meniscal tear based on history and exam. I will apply knee immobilizer and provide crutches. Plan for outpatient follow-up with orthopedics. Quality:SDOH Health Related Social Needs: No Data to Display PFSH All Active Problems (Updated 03/09/24 @ 12:49 by Long Simon MD) Acute medial meniscal injury of right knee (Acute) Right knee injury (Acute) LILIYA (obstructive sleep apnea) (Chronic) Hypertension (Chronic) Screening for colon cancer (Acute) Medical History (Updated 03/09/24 @ 12:49 by Long Simon MD) Plantar fasciitis Achilles tendonitis Lower limb length difference Ingrown toenail of left foot Onychodystrophy Arthralgia of right foot Posterior tibial tendonitis Asthma Right knee pain Sensorineural hearing loss of both ears Acid reflux Type 2 diabetes mellitus Hypercholesteremia Surgical History H/O adenoidectomy Hx of tonsillectomy H/O repair of rotator cuff H/O knee surgery History of cholecystectomy Social History Smoking/Tobacco Use Status: Former Tobacco Use Tobacco: How many years used: 31 Smoking risk assessment performed?: Yes Alcohol Intake: current Alcohol Intake frequency: holidays/special occasions only Drug use: Never Substance use type: does not use Do you feel safe at home: Yes Do you feel safe in your relationship?: Yes
--- NOTE | 2024-04-08 15:07 | NUR.NOTE ---
Accessed patient chart to print provider note to be faxed to [facility] for billing purposes. Nursing Note:
== END 2024-03-09 13:09 | disposition home or self-care (01) ==
PROVIDERS: Emergency Provider Student in an Organized Health Care Education/Training Program; PCP Nurse Practitioner
DX: S83.8X1A Sprain of other specified parts of right knee, initial encounter (principal); X58.XXXA Exposure to other specified factors, initial encounter
CPT/HCPCS: 29505; 73562; 99283

== ENCOUNTER 2024-03-27 00:26 | Outpatient (CLI) | payer MEDICARE, SELFPAY ==
--- NOTE | 2024-03-27 07:00 | DI.MRI_ITS ---
Exam(s) MR LOWER JOINT RT WO EXAM: MR LOWER JOINT RT WO CLINICAL HISTORY: R KNEE INJURY,ACUTE MEDIAL MENISCAL INJURY,S83.81XA,S89.91XA. TECHNIQUE: Multiplanar multisequence MRI was performed. COMPARISON: CR XR KNEE RT 3V AP,LAT,VARUN from 03/09/2024 FINDINGS: BONES: There is no fracture or contusion pattern. JOINTS: A small joint effusion is present. Articular cartilage: Patellofemoral joint: Articular cartilage is unremarkable. Medial femoral tibial joint: Articular cartilage is unremarkable. Lateral femoral tibial joint: Articular cartilage is unremarkable. LIGAMENTS/TENDONS: Anterior Cruciate: Surrounding fluid but no visible tear. Posterior Cruciate: Unremarkable. Medial Collateral:Unremarkable. Lateral Collateral ligament complex: Unremarkable. Extensor mechanism: Unremarkable. Medial retinaculum: Unremarkable. Lateral retinaculum: Unremarkable. Popliteus: Unremarkable. MENISCI: The medial meniscus shows a small amount of increased signal in the anterior horn no definite focal t ear. Findings could be degenerative. The lateral meniscus is unremarkable. MUSCLES: Unremarkable. SOFT TISSUES: Unremarkable. IMPRESSION: Fluid around the anterior cruciate and indicate sprain. No focal tear visible. Mildly increased signal in the anterior horn of the medial meniscus without focal tear. DATA REPOSITORY:
== END 2024-03-27 00:46 ==
LOC: DI 00:26
PROVIDERS: PCP Nurse Practitioner; Visit Provider Student in an Organized Health Care Education/Training Program
DX: S83.8X1A Sprain of other specified parts of right knee, initial encounter (principal); S89.91XA Unspecified injury of right lower leg, initial encounter; X58.XXXA Exposure to other specified factors, initial encounter
CPT/HCPCS: 73721

== ENCOUNTER 2024-03-27 09:26 | Outpatient (CLI) | payer MEDICARE, SELFPAY ==
[2024-03-27 09:55] LABS: Abs Immature Grans 0.03 10^3/uL (0.0-0.06); Absolute Basophil Count 0.02 10^3/uL (0.0-0.2); Absolute Lymphocyte Count 1.43 10^3/uL (1.2-3.4); Absolute Neutrophil Count 3.67 10^3/uL (1.2-6.7); Basophils % 0.3 %; Eosinophils % 1.7 %; HCT 42.9 % (40.0-50.0); HGB 14.7 g/dL (13.5-17.5); Immature Grans % 0.5 %; MCHC 34.3 % (32.0-36.0); MCV 91 fL (80-95); MPV 11.9 fL (8.0-11.0); Monocytes % 11.8 %; Neutrophils % 61.7 %; Platelet Count 181 10^3/uL (130-400); RBC 4.74 10^6/uL (4.36-5.78); RDW 11.4 % (11.8-14.1); RDW-SD 37.8 fL; WBC 5.95 10^3/uL (4.4-10.8)
[2024-03-27 10:12] LABS: ALT 50 U/L (16-63); AST 19 U/L (15-37); Albumin 4.1 g/dL (3.4-5.0); Alkaline Phosphatase 96 U/L (46-116); Anion Gap 9.3 mmol/L (3-11); BUN 16 mg/dL (7-18); Bilirubin, Total 0.54 mg/dL (0.2-1.0); CO2 27.7 mmol/L (21.0-32.0); Calcium 9.3 mg/dL (8.5-10.1); Calculated LDL 57 mg/dL (<100); Chloride 105 mmol/L (98-107); Cholesterol 118 mg/dL (<200); Estimated GFR 89.44 (mL/min/1.73m2); Glucose 108 mg/dL (74-106); HDL Cholesterol 42 mg/dL (40-60); Magnesium 1.6 mg/dL (1.8-2.4); Potassium 4.2 mmol/L (3.5-5.1); Sodium 142 mmol/L (136-145); Total Protein 7.4 g/dL (6.4-8.2); Triglyceride 96 mg/dL (<150)
[2024-03-27 10:18] LABS: Hemoglobin A1C 5.8 % (<5.7)
== END 2024-03-27 09:27 | disposition home or self-care (01) ==
LOC: LBO 09:27
PROVIDERS: PCP Nurse Practitioner; Visit Provider Nurse Practitioner
DX: E66.9 Obesity, unspecified (principal); G89.29 Other chronic pain; I10 Essential (primary) hypertension; E78.49 Other hyperlipidemia; K21.9 Gastro-esophageal reflux disease without esophagitis; M23.91 Unspecified internal derangement of right knee
CPT/HCPCS: 36415; 80053; 80061; 83036; 83735; 85025

== ENCOUNTER → 2024-04-07 13:22 | Outpatient (BNVA) | payer MEDICARE, SELFPAY | PROVIDERS: PCP Nurse Practitioner; Referring Provider Nurse Practitioner; Visit Provider Student in an Organized Health Care Education/Training Program | DX: S83.91XA Sprain of unspecified site of right knee, initial encounter (principal); X58.XXXA Exposure to other specified factors, initial encounter | CPT/HCPCS: 99213 ==

== ENCOUNTER 2024-07-10 16:13 | Outpatient (CLI) | payer MEDICARE, MEDICAID, SELFPAY ==
[2024-07-10 10:09] LABS: Abs Immature Grans 0.03 10^3/uL (0.0-0.06); Absolute Basophil Count 0.03 10^3/uL (0.0-0.2); Absolute Lymphocyte Count 1.66 10^3/uL (1.2-3.4); Absolute Neutrophil Count 4.34 10^3/uL (1.2-6.7); Basophils % 0.4 %; Eosinophils % 1.5 %; HCT 42.2 % (40.0-50.0); HGB 14.5 g/dL (13.5-17.5); Immature Grans % 0.4 %; Lymphocytes % 24.2 %; MCH 30.8 pg (27.0-33.0); MCHC 34.4 % (32.0-36.0); MCV 90 fL (80-95); Monocytes % 10.2 %; Neutrophils % 63.3 %; Platelet Count 170 10^3/uL (130-400); RBC 4.71 10^6/uL (4.36-5.78); RDW 11.6 % (11.8-14.1); RDW-SD 38.1 fL; WBC 6.86 10^3/uL (4.4-10.8)
[2024-07-10 10:41] LABS: Hemoglobin A1C 5.9 % (<5.7)
[2024-07-10 11:00] LABS: ALT 43 U/L (16-63); AST 18 U/L (15-37); Albumin 3.9 g/dL (3.4-5.0); Alkaline Phosphatase 112 U/L (46-116); Anion Gap 8.3 mmol/L (3-11); BUN 15 mg/dL (7-18); CO2 26.7 mmol/L (21.0-32.0); Calcium 8.8 mg/dL (8.5-10.1); Calculated LDL 64 mg/dL (<100); Chloride 107 mmol/L (98-107); Cholesterol 120 mg/dL (<200); Estimated GFR 88.88 (mL/min/1.73m2); Glucose 143 mg/dL (74-106); HDL Cholesterol 43 mg/dL (>or=40); Magnesium 1.7 mg/dL (1.8-2.4); Potassium 3.7 mmol/L (3.5-5.1); Sodium 142 mmol/L (136-145); Triglyceride 66 mg/dL (<150)
== END 2024-07-10 16:14 | disposition home or self-care (01) ==
LOC: LBO 16:15
PROVIDERS: PCP Nurse Practitioner; Visit Provider Nurse Practitioner
DX: E66.9 Obesity, unspecified (principal); M25.50 Pain in unspecified joint; G89.29 Other chronic pain; I10 Essential (primary) hypertension; E78.49 Other hyperlipidemia; K21.9 Gastro-esophageal reflux disease without esophagitis
CPT/HCPCS: 36415; 80053; 80061; 83036; 83735; 85025